=== PATIENT | male | born 1970 | race African-American/Black ===

== ENCOUNTER 2022-11-03 07:40 | Emergency (ER) | payer OTHER ==
[~2022-11-03] VITALS: Ht 170.2 cm; Wt 77.0 kg
[2022-11-03 07:50] VITALS: O2SAT 100
[2022-11-03] MEDS ORDERED: ONDANSETRON 4MG ODT PO ONE (08:45)
[2022-11-03] MEDS ORDERED: HYDROCODONE/ACETAMINOPHEN 5/325MG TABLET PO ONE (08:45)
[2022-11-03] MEDS ORDERED: IBUP-2029 MT (10:18)
[2022-11-03] MEDS ORDERED: CEPH500C2 MT (10:18)
[2022-11-03 11:02] VITALS: BP 138/80; PULSE 81; RESP 18; TEMP 98.9
== END 2022-11-03 11:03 | disposition home or self-care (01) ==
LOC: ER 07:40
DX: M79.672 Pain in left foot (principal); L03.116 Cellulitis of left lower limb
CPT/HCPCS: 99283; 73630; Q0162